=== PATIENT | female | born 1975 | race Two or more races ===

== ENCOUNTER 2024-10-02 01:50 | Emergency (ER) | payer MEDICAID ==
[~2024-10-02] VITALS: Ht 170.2 cm; Wt 96.1 kg
--- NOTE | 2024-10-02 02:45 | ED.PDOC ---
HPI Comments 49-year-old female complaining of laceration to left index finger. Patient states she was cutting she was she when she hit her pad of her finger with a sharp knife. Bleeding controlled upon arrival. Chief Complaint: Laceration Time Seen by MD: 02:20 Reviewed Notes: Nurses Notes Allergies: Uncoded Allergies: CODEINE (Allergy, Unknown, 10/02/24) Information Source: Patient Mode of Arrival: Ambulatory Complexity: Simple Laceration Length (cm): 1 Skin Type: Linear Past Medical History PAST MEDICAL HISTORY: Denies Surgical History: Denies all surgeries VISITING PROFESSOR History: No Pertinent VISITING PROFESSOR History Constitutional: denies: chills, diaphoresis, fatigue, fever, malaise, sweats, weakness, others EENTM: denies: blurred vision, double vision, ear bleeding, ear discharge, ear drainage, ear pain, ear ringing, eye pain, eye redness, hearing loss, mouth pain, mouth swelling, nasal discharge, nose bleeding, nose congestion, nose pain, photophobia, tearing, throat pain, throat swelling, voice changes, others Respiratory: denies: cough, hemoptysis, orthopnea, SOB at rest, shortness of breath, SOB with excertion, stridor, wheezing, others Cardiovascular: denies: chest pain, dizzy spells, diaphoresis, Dyspnea on exertion, edema, irregular heart beat, left arm pain, lightheadedness, palpitations, PND, syncope, others Gastrointestinal: denies: abdomen distended, abdominal pain, blood streaked bowels, constipated, diarrhea, dysphagia, difficulty swallowing, hematemesis, melena, nausea, poor appetite, poor fluid intake, rectal bleeding, rectal pain, vomiting, others Genitourinary: denies: abnormal vagina bleeding, burning, dyspareunia, dysuria, flank pain, frequency, hematuria, incontinence, pain, , vagina discharge, urgency, others Neurological: denies: dizziness, fainting, headache, left sided numbness, left sided weakness, numbness, paresthesia, pre-existing deficit, right sided numbness, right sided weakness, seizure, speech problems, tingling, tremors, weakness, others Musculoskeletal: denies: back pain, gout, joint pain, joint swelling, muscle pa in, muscle stiffness, neck pain, others Integumetry: reports: laceration; denies: bruises, change in color, change in hair/nails, dryness, lesions, lumps, rash, wounds, others Allergic/Immunocompromised: denies: Difficulty Healing, Frequent Infections, Hives, Itching, others Hematologic/Lymphatic: denies: anemia, blood clots, easy bleeding, easy bruising, swollen glands, others Physical Exam General Appearance: No Apparent Distress, Normal HEENT: Normal ENT Inspection, Pharynx Normal, TMs Normal Neck: Full Range of Motion, Non-Tender, Normal, Normal Inspection Respiratory: Chest Non-Tender, Lungs Clear, No Accessory Muscle Use, No Respiratory Distress, Normal Breath Sounds Cardiovascular: No Edema, No JVD, No Murmur, No Gallop, Normal Peripheral Pulses, Regular Rate/Rhythm Breast Exam: Deferred Gastrointestinal: No Organomegaly, Non Tender, No Pulsatile Mass, Normal Bowel Sounds, Soft Genitalia: Deferred Pelvic: Deferred Rectal: Deferred Extremities: No calf tenderness, Normal capillary refill, Normal inspection, Normal range of motion, Non-tender, No pedal edema Musculoskeletal : Apperance: Normal Neurologic: Alert, food sampler II-XII nml as Tested, No Motor Deficits, Normal Affect, Normal Mood, No Sensory Deficits Cerebellar Function: Normal Reflexes: Normal Skin: Dry, Lacerations (1.5 cm laceration to the pad of the left hand 2nd digit finger.), Normal Color, Warm Lymphatic: No Adenopathy Was a procedure done? Was a procedure done?: Yes Sedation Sedation?: No Laceration Repair : Location Left index finger Length 1.5cm Anesthetic: Lidocaine Laceration Repair Prep: Saline Laceration Repair Wound Comple: epidermis/dermis repair Laceration Repair: Number of sutures (4), Size (4-0), Nylon, Bacitracin, Non-adherent gauze Informed consent obtained: Yes Risks, benefits, and alternati: Yes Differential diagnosis Suture Removal: Cellulitis Generic Laceration: Abrasion/Contusion, Laceration X-Ray, Labs, Meds, VS Vital Signs Date Time Temp Pulse Resp B/P (MAP) Pulse Ox O2 Delivery O2 Flow Rate FiO2 10/02/24 01:58 97.6 26 20 137/95 (109) 95 X-Ray, Labs, Meds, VS Comment Imaging: X-rays and CT scans were reviewed and interpreted by this provider, imaging shows no fractures and no pathological disease. Pending radiology review. Laboratory: Labs reviewed and interpreted by this provider. No significant abnormalities noted. Patient has prior medical visits reviewed. Med reconciliation performed Vital signs reviewed Time of 1ST Reevaluation: 02:45 Reevaluation 1ST: Improved Patient Education/Counseling: Diagnosis, Treatment, Need For Follow Up (Patient vies to follow-up in the next 2 days for wound recheck. Advised follow-up in the next 7 to 10 days for suture removal. Advised he may follow-up in urgent care, ER or primary care doctor's office. Patient verbalized understanding) Family Education/Counseling: No Family Present Departure 1 Departure Time of Disposition: 02:44 Impression: Primary Impression: Finger laceration Qualified Codes: S61.211A - Laceration without foreign body of left index finger without damage to nail, initial encounter Disposition: HOME / SELF CARE / HOMELESS Condition: Fair Discharged With: Self Comments Patient vies to follow-up in the next 2 days for wound recheck. Advised follow- up in the next 7 to 10 days for suture removal. Advised he may follow-up in urgent care, ER or primary care doctor's office. Patient verbalized understanding Critical Care Note Critical Care Time?: No Stability Stability form required: No Heart Score Heart Score: Heart Score Response (Comments) Value History N/A 0 EKG N/A 0 Age N/A 0 Risk Factors N/A 0 Troponin N/A 0 Total 0 DAVI CHIU Oct 02, 2024 02:45
[2024-10-02 03:00] VITALS: BP 124/89; PULSE 78; RESP 18; TEMP 98; O2SAT 98
== END 2024-10-02 03:40 | disposition home or self-care (01) ==
LOC: ER 01:50
DX: S61.211A Laceration without foreign body of left index finger without damage to nail, initial encounter (principal); Z88.5 Allergy status to narcotic agent; W26.0XXA Contact with knife, initial encounter; Y93.89 Activity, other specified; Y92.89 Other specified places as the place of occurrence of the external cause; Y99.8 Other external cause status
CPT/HCPCS: 12001

== ENCOUNTER 2025-09-26 04:09 | Emergency (ER) | payer MEDICAID ==
[~2025-09-26] VITALS: Ht 170.2 cm; Wt 72.7 kg
[2025-09-26 04:15] VITALS: BP 111/83; PULSE 111; RESP 26; TEMP 98.2; O2SAT 97
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
== END 2025-09-26 11:51 | disposition left against medical advice (07) ==
LOC: EDUNIT# 04:09 → EDBD 04:09 → ER 04:09
DX: F20.9 Schizophrenia, unspecified (principal); F41.9 Anxiety disorder, unspecified